=== PATIENT | female | born 1960 | race Hispanic/Latino ===

== ENCOUNTER → 2021-01-02 | Outpatient (CLI) | payer OTHER | LOC: RAD 14:23 | PROVIDERS: ATTEND Urology | DX: N20.0 Calculus of kidney (principal) | CPT/HCPCS: 74018 ==

== ENCOUNTER → 2021-02-13 | Outpatient (CLI) | payer OTHER | LOC: CT 14:10 | PROVIDERS: ATTEND Urology | DX: N20.0 Calculus of kidney (principal) | CPT/HCPCS: 74176 ==

== ENCOUNTER → 2021-05-26 | Outpatient (CLI) | payer OTHER ==
[~2021-05-26] MED LIST: IOPAMIDOL 370 MG/ML 200 ML INFUS..BTL INJ ONE; SODIUM CHLORIDE 0.9% 250ML 250 ML ONE
[2021-05-26 16:52] LABS: CREATININE, SERUM 0.8 mg/dL (0.57-1.11)
== END ==
LOC: CT 16:04
PROVIDERS: ATTEND Urology
DX: R31.0 Gross hematuria (principal)
CPT/HCPCS: 36415; 74177; 74178; 82565; 84520; J7050; Q9967

== ENCOUNTER → 2024-05-20 | Day surgery (SDC) | payer OTHER ==
[~2024-05-20] MED LIST changes: +ACETAMINOPHEN 1000 MG/100 ML 0 ML IV ONE; +DEXAMETHASONE SOD PHOS INJ 4 MG/ML SDV ONE; +FAMOTIDINE 20 MG/2 ML VIAL IV ONE; +FENTANYL CITRATE/PF 100MCG/2 ML INJ ONE; +FERROUS SULFAT324 MG PO; +GLUCAGON FOR INJ 1 MG VIAL ONE; -IOPAMIDOL 370 MG/ML 200 ML INFUS..BTL INJ ONE; +LACTATED RINGER'S 1,000 ML ONE; +LIDOCAINE HCL 2% LOCAL INJ 5 ML SDV VIAL INJ ONE; +LYRICA75 MG PO; +MELATONIN3 MG PO; +MIDAZOLAM HCL 2 MG/2 ML VIAL ONE; +ONDANSETRON HCL INJ 2MG/ML 2ML 2 MG/ML VIAL ONE; +PROPOFOL IV EMULSION 10 MG/ML 20 ML VIAL ONE; +PROPOFOL IV EMULSION 50 ML IV ONE; +ROCURONIUM BROMIDE 0 ML IV ONE; +SEVOFLURANE INHAL SOLN 250 ML PEN BTL ONE; -SODIUM CHLORIDE 0.9% 250ML 250 ML ONE; +SUCCINYLCHOLINE CHLORIDE 20 MG/ML 10ML VIAL ONE; +SUGAMMADEX SODIUM 200 MG/2 ML VIAL IV ONE; +VIT D3 PO
[2024-05-20 13:45] VITALS: BP 110/69; PULSE 62; RESP 16; TEMP 97.1; O2SAT 98
== END | disposition home or self-care (01) ==
LOC: OR 10:22
PROVIDERS: ATTEND Internal Medicine Gastroenterology
DX: Z09 Encounter for follow-up examination after completed treatment for conditions other than malignant neoplasm (principal); Z86.0100 Personal history of colon polyps, unspecified; K57.30 Diverticulosis of large intestine without perforation or abscess without bleeding; K64.8 Other hemorrhoids; D64.9 Anemia, unspecified; F41.9 Anxiety disorder, unspecified; Z01.810 Encounter for preprocedural cardiovascular examination
CPT/HCPCS: 45378; 93005; J1610; J2003; J2704 ×2; J7121; J0330; J1100; J2250; J2405